=== PATIENT | male | born 1965 | race Caucasian/White ===

== ENCOUNTER 2018-08-29 19:46 | Emergency (ER) | payer OTHER ==
[~2018-08-29] VITALS: Ht 180.3 cm; Wt 91.5 kg
[2018-08-29 19:48] VITALS: BP 137/81
== END 2018-08-29 21:15 | disposition home or self-care (01) ==
LOC: ED 20:09
DX: M79.10 Myalgia, unspecified site (principal); M25.511 Pain in right shoulder
CPT/HCPCS: 99284

== ENCOUNTER 2019-10-12 20:41 | Emergency (ER) | payer OTHER ==
[~2019-10-12] VITALS: Ht 180.3 cm; Wt 92.9 kg
[2019-10-12] MEDS ORDERED: SODIUM CHLORIDE 0.9% 1,000ML IVBOLUS ONE (21:00)
[2019-10-12] MEDS ORDERED: PROMETHAZINE 25 MG/ML, 1ML IM ONE (21:00)
[2019-10-12] MEDS ORDERED: SODIUM CHLORIDE FLUSH 10ML SYR IVF ONE (21:00)
[2019-10-12] MEDS ORDERED: MORPHINE SULFATE 4 MG/ML, 1ML IVPush PRN (21:00)
[2019-10-12] MEDS ORDERED: ONDANSETRON 2MG/ML, 2ML IVPush ONE (21:00)
--- NOTE | 2019-10-12 21:00 | NUR ---
PT UP TO RESTROOM FOR URINE SAMPLE. LAB AT BEDSIDE
--- NOTE | 2019-10-12 21:12 | NUR ---
PT TO RADIOLOGY
[2019-10-12 21:19] LABS: MEAN CORPUSCULAR HEMOGLOBIN 20.3 pg (27.5-34.5); MEAN CORPUSCULAR HGB CONC 30.2 g/dL (33.2-36.2); MEAN CORPUSCULAR VOLUME 67.3 fL (81-97); MEAN PLATELET VOLUME 7.6 fL (7.4-10.4); PLATELET COUNT 357 x10^3/uL (130-400); RED BLOOD COUNT 6.45 x10^6/uL (4.38-5.82); RED CELL DISTRIBUTION WIDTH 22.4 % (9.4-14.8)
[2019-10-12 21:23] LABS: ALBUMIN 3.7 g/dL (3.4-5.0); ANION GAP 5 mmol/L (5-15); CHLORIDE 108 mmol/L (98-107)
--- NOTE | 2019-10-12 21:23 | NUR ---
54Y M COMES IN W/ C/O ABD PAIN W/N/V. PT STS PAIN STARTED YESTERDAY N/V STARTED TODAY. PT DENIES ANY RECENT ILLNESS, DIET CHANGES AND TRAUMA. PT CONNECTED TO MONITORING VSS, CALL LIGHT WITHIN REACH
[2019-10-12 21:26] LABS: ALANINE AMINOTRANSFERASE 36 U/L (12-78); ALKALINE PHOSPHATASE 44 U/L (45-117); BILIRUBIN,TOTAL 0.6 mg/dL (0.2-1.0); TOTAL PROTEIN 7.3 g/dL (6.4-8.2)
[2019-10-12] MEDS ORDERED: ONDANSETRON 2MG/ML, 2ML ONE (21:30)
[2019-10-12] MEDS ORDERED: PROMETHAZINE 25 MG/ML, 1ML ONE (21:30)
[2019-10-12] MEDS ORDERED: MORPHINE SULFATE 4 MG/ML, 1ML ONE (21:30)
[2019-10-12 21:38] LABS: MICROSCOPIC NOT IND
[2019-10-12 21:45] LABS: MD YES
[2019-10-12 21:47] LABS: EOS#(MANUAL) 0.21 x10^3/uL (0.0-0.4); EOS% (MANUAL) 2 % (1-7); LYMPH#(MANUAL) 0.32 x10^3/uL (1-3.4); LYMPHS% (MANUAL) 3 % (22-44); MONOS#(MANUAL) 0.32 x10^3/uL (0.3-2.7); MONOS% (MANUAL) 3 % (2-9); SEG#(MANUAL) 9.66 x10^3/uL (1.8-6.8); SEGS% (MANUAL) 92 % (42-75)
[2019-10-12 21:48] LABS: ANISOCYTOSIS 1+; MICROCYTOSIS 1+; POLYCHROMASIA 1+
[2019-10-12 21:49] LABS: CULTURE INDICATED? NO
[2019-10-12 21:49] LABS: <PLATELET ESTIMATE> ADEQUATE; <PLT MORPHOLOGY> NORMAL PLT MORPH; OVALOCYTES 1+; TARGET CELLS 1+; TEAR DROPS 1+
--- NOTE | 2019-10-12 21:54 | NUR ---
PT MEDICATED PER MAR, PLACED ON 2L NC FOR COMFORT AND SAFETY.
--- NOTE | 2019-10-12 22:40 | NUR ---
PT O2 SAT 100% ON 2L NC. O2 TAKEN OFF, PT DOES NOT REGULARLY REQUIRE O2.
--- NOTE | 2019-10-12 23:00 | NUR ---
PT O2 SAT DROPPED TO 88% ON RA, UPDATED ON PT NEED FOR O2. WILL CONTINUE TO MONITOR
--- NOTE | 2019-10-12 23:02 | NUR ---
PT PLACED ON 2L NC O2 SAT UP TO 94%.
[2019-10-13 01:33] VITALS: BP 116/84
== END 2019-10-13 01:36 | disposition home or self-care (01) ==
LOC: ED 21:08
DX: K52.9 Noninfective gastroenteritis and colitis, unspecified (principal); R11.2 Nausea with vomiting, unspecified; E86.0 Dehydration; E86.9 Volume depletion, unspecified
CPT/HCPCS: 36415; 74021; 80053; 81003; 82550; 83690; 85025; 96361; 96372; 96374; 96375; 99284; J2270; J2405; J2550; J7030

== ENCOUNTER 2020-10-16 08:48 | Emergency (ER) | payer OTHER ==
[~2020-10-16] VITALS: Ht 180.3 cm; Wt 93.1 kg
--- NOTE | 2020-10-16 09:20 | NUR ---
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
--- NOTE | 2020-10-16 09:30 | NUR ---
pt c/o sob and chest tightness since yesterday, worse yesterday now having some relief. Pt denies cardiac or pulmonary hx. 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 vss. ERMD in to assess pt.
[2020-10-16] MEDS ORDERED: ASPIRIN 81 MG TABLET CHEW PO ONE (10:00)
[2020-10-16] MEDS ORDERED: ASPIRIN 81 MG TABLET CHEW ONE (10:10)
[2020-10-16 10:20] LABS: MEAN CORPUSCULAR HEMOGLOBIN 19.6 pg (27.5-34.5); MEAN CORPUSCULAR HGB CONC 30.5 g/dL (33.2-36.2); MEAN PLATELET VOLUME 8.6 fL (7.4-10.4); PLATELET COUNT 325 x10^3/uL (130-400); RED BLOOD COUNT 6.11 x10^6/uL (4.38-5.82); RED CELL DISTRIBUTION WIDTH 20.6 % (9.4-14.8)
[2020-10-16 10:31] LABS: ALBUMIN 3.3 g/dL (3.4-5.0); ANION GAP 6 mmol/L (5-15); CALCIUM 8.7 mg/dL (8.5-10.1); CHLORIDE 110 mmol/L (98-107)
--- NOTE | 2020-10-16 10:32 | NUR ---
PT SITTING RECLINED IN BED, NAD NOTED AT THIS TIME. AWAITING LABS AND CXR RESULTS.
[2020-10-16 10:36] LABS: TROPONIN I < 0.015 ng/mL (0.000-0.045)
[2020-10-16 10:53] LABS: MD YES
[2020-10-16 11:03] LABS: BASOS#(MANUAL) 0.09 x10^3/uL (0-0.1); BASOS% (MANUAL) 2 % (0-1); EOS#(MANUAL) 0.09 x10^3/uL (0.0-0.4); EOS% (MANUAL) 2 % (1-7)
[2020-10-16 11:04] LABS: ANISOCYTOSIS 1+; HYPOCHROMIA 2+; LYMPH#(MANUAL) 0.38 x10^3/uL (1-3.4); LYMPHS% (MANUAL) 8 % (22-44); MICROCYTOSIS 2+; MONOS#(MANUAL) 0.52 x10^3/uL (0.3-2.7); MONOS% (MANUAL) 11 % (2-9); POLYCHROMASIA 1+; SEG#(MANUAL) 3.62 x10^3/uL (1.8-6.8); SEGS% (MANUAL) 77 % (42-75); TARGET CELLS 1+
[2020-10-16 11:05] LABS: <PLATELET ESTIMATE> ADEQUATE; <PLT MORPHOLOGY> NORMAL PLT MORPH; OVALOCYTES 1+
[2020-10-16 11:27] VITALS: BP 151/87
--- NOTE | 2020-10-16 11:27 | NUR ---
PT LAYING BACK IN BED, NAD NOTED AT THIS TIME. RESPIRATIONS EVEN AND UNLABORED ON RA. SIDE RAIL UP, CALL LIGHT IN REACH. PT UP FOR RECHECK.
--- NOTE | 2020-10-16 11:46 | NUR ---
SOCO IN TO DISCUSS FINDINGS WITH PT.
== END 2020-10-16 12:18 | disposition home or self-care (01) ==
LOC: ED 10:44
DX: U07.1 COVID-19 (principal); I10 Essential (primary) hypertension; R06.02 Shortness of breath; R07.89 Other chest pain; R05 Cough
CPT/HCPCS: 36415; 71045; 80048; 82040; 84484; 85025; 85379; 87635; 93005; 99285

== ENCOUNTER → 2021-07-05 | Outpatient (CLI) | payer OTHER | END | disposition home or self-care (01) | LOC: CFH 06:48 | PROVIDERS: ATTEND Internal Medicine Cardiovascular Disease | DX: I35.8 Other nonrheumatic aortic valve disorders (principal); R06.02 Shortness of breath | CPT/HCPCS: 93306; 93356 ==